=== PATIENT | female | born 1985 | race Caucasian/White ===

== ENCOUNTER 2017-12-06 09:26 | Outpatient (CLI) | payer MEDICARE, MEDICAID ==
[~2017-12-06] VITALS: Ht 165.1 cm; Wt 95.9 kg
[~2017-12-06 09:26] MED LIST: ACHD5005 PO; AMOX500C2 PO; NAPR-243 PO
[2017-12-06] MEDS ORDERED: RT-ALBUINH IH (09:38)
[2017-12-06 09:41] VITALS: BP 119/77
[2017-12-06 10:45] LABS: BASOPHILS % (AUTO) 0 % (0-10); EOSINOPHILS # (AUTO) 0.2 10^3/uL (0.0-0.3); EOSINOPHILS % (AUTO) 1 % (0-10); HEMATOCRIT 41 % (35-52); HEMOGLOBIN 14.3 G/DL (11.5-16.0); LYMPHOCYTES # (AUTO) 3.5 X 10^3 (1.0-4.0); LYMPHOCYTES % (AUTO) 26 % (12-44); MEAN CORPUSCULAR HEMOGLOBIN 32 PG (25-34); MEAN CORPUSCULAR HGB CONC 35 G/DL (32-36); MEAN CORPUSCULAR VOLUME 91 FL (80-99); MEAN PLATELET VOLUME 9.5 FL (7.4-10.4); MONOCYTES # (AUTO) 1.5 X 10^3 (0.0-1.0); MONOCYTES % (AUTO) 11 % (0-12); NEUTROPHILS # (AUTO) 8.6 X 10^3 (1.8-7.8); NEUTROPHILS % (AUTO) 62 % (42-75); PLATELET COUNT 361 10^3/uL (130-400); RED BLOOD COUNT 4.52 10^6/uL (4.35-5.85); RED CELL DISTRIBUTION WIDTH 12.8 % (10.0-14.5); WHITE BLOOD COUNT 13.8 10^3/uL (4.3-11.0)
[2017-12-10] MEDS ORDERED: IBUP-844 PO (10:53)
[2017-12-10] MEDS ORDERED: HYDR-34 PO (10:53)
[2017-12-10] MEDS ORDERED: SIME80TA16 PO (10:53)
[2017-12-10] MEDS ORDERED: DOCU100C37 PO (10:53)
== END 2017-12-06 13:01 | disposition home or self-care (01) ==
LOC: PREOP 09:26
PROVIDERS: ATTEND Obstetrics & Gynecology
DX: Z01.812 Encounter for preprocedural laboratory examination (principal); Z11.2 Encounter for screening for other bacterial diseases; N87.9 Dysplasia of cervix uteri, unspecified
CPT/HCPCS: 36415; 85025; 86850; 86900; 86901; 87081

== ENCOUNTER 2017-12-10 08:35 | Day surgery (SDC) | payer MEDICARE, MEDICAID ==
[~2017-12-10] VITALS: Ht 165.1 cm; Wt 95.9 kg
[~2017-12-10 08:35] MED LIST changes: +LACTATED RINGERS 1,000 ML IV ONE; +RT-ALBUINH IH
[2017-12-10] MEDS ORDERED: metroNIDAZOLE 500MG/100ML IVPB 100 ML IV ONE (08:45)
[2017-12-10] MEDS ORDERED: ceFAZolin 2 GM IV Premixed 50 ML IV ONE (08:45)
[2017-12-10] MEDS ORDERED: LIDOCAINE 1% INJ 20 ML 20 ML VIAL ONE (08:50)
[2017-12-10 09:27] VITALS: BP 111/69
[2017-12-10] MEDS: LACTATED RINGERS 1,000 ML IV PRN ×2 (10:00→11:55)
--- NOTE | 2017-12-10 10:01 | History & Physical-Surgical ---
HPO-Surgical History of Present Illness Chief Complaint: Positive cervical margins on cone biopsy of cervix with long history of recurrent cervical dysplasia Diagnosis/Surgical Indication: RECURRENT CERVICAL DYSPLASIA Procedure: RATLH WITH POSS BSO Date of Surgery: December 10, 2017 Weight (Pounds): 211 Weight (Ounces): 8.0 Height (Feet): 5 Height (Inches): 5.00 Allergies and Home Medications Allergies Coded Allergies: mirtazapine (Verified Allergy, Mild, HALLUCINATIONS, 12/06/17) Home Medications Albuterol Sulfate 1 Puff Puff, 2 PUFF IH Q4H PRN for SHORTNESS OF BREATH, ( Reported) 1 PUFF = 90 MCG Patient Home Medication List Home Medication List Reviewed: Yes Past Sdkzxlq-Fxyavq-Aiyfsj Hx Patient Social History Alcohol Use: Denies Use Recreational Drug Use: No Smoking Status: Current Everyday Smoker Type Used: Cigarettes Recent Foreign Travel: No Contact w/other who traveled: No Recent Hopitalizations: No Recent Infectious Disease Expo: No Immunizations Up To Date Date of Influenza Vaccine: May 19, 2011 Seasonal Allergies Seasonal Allergies: No Surgeries Gallbladder Neurological Seizure Disorder Reproductive System Hx Reproductive Disorders: Yes (RECURRENT CERVICAL DYSPLASIA) Sexually Transmitted Disease: Yes (CHYLMYDIA) HIV/AIDS: No Female Reproductive Disorders: Menstrual Problems HEENT Loss of Vision: Bilateral Hearing Impairment: Denies Blood Transfusions Adverse Reaction to a Blood Tr: No Exam Vital Signs Vital Signs 12/10/17 09:27 Temp 98.4 Pulse 100 Resp 18 B/P (MAP) 111/69 (83) Pulse Ox 94 O2 Delivery Room Air Capillary Refill : Labs Laboratory Tests Test 12/10/17 08:30 Range/Units Urine Test NEGATIVE NEGATIVE General Appearance: Alert, Oriented X3 HEENT: Atraumatic Respiratory: Clear to Auscultation Cardiovascular: Regular Rate Abdominal: Normal Bowel Sounds Extremities: No Clubbing Skin: No Significant Lesion Neuro: Normal Gait Psych/Mental Status: Mental Status NL Assessment/Plan Assessment and Plan 32 yo with recurrent cervical dysplasia Positive endocervical margins with showed CIN2 Robotic Assisted TLH P: RATLH with poss BSO Admission Diagnosis 32 yo with recurrent cervical dysplasia Positive endocervical margins with showed CIN2 Robotic Assisted TLH Admission Status: Observation HUSAM NIETO DO December 10, 2017 10:00 am
[2017-12-10] MEDS ORDERED: BUPIVACAINE 0.25% 30 ML (SENSORCAINE) VIAL ONE (10:07)
[2017-12-10] MEDS ORDERED: DEXAMETHASONE 10 MG/ML (DECADRON) 1 ML VIAL ONE (10:20)
[2017-12-10] MEDS ORDERED: LIDOCAINE PF 2% 5 ML (XYLOCAINE) VIAL ONE (10:20)
[2017-12-10] MEDS ORDERED: proPOfol 200 MG/20 ML (DIPRIVAN) VIAL IV ONE (10:20)
[2017-12-10] MEDS ORDERED: NEOSTIGMINE 1 MG/ML 5 ML SYRINGE ONE (10:20)
[2017-12-10] MEDS ORDERED: ROCURONIUM 10 MG/ML 5 ML SYRINGE IV ONE (10:20)
[2017-12-10] MEDS ORDERED: ONDANSETRON 4 MG/2 ML (SDV) Z0FRAN ONE (10:20)
[2017-12-10] MEDS ORDERED: GLYCOPYRROLATE 0.2 MG/ML (ROBINUL) 2 ML VIAL ONE (10:20)
[2017-12-10] MEDS ORDERED: SEVOFLURANE (ULTANE) 15 ML INHAL SOLN ONE (10:20)
[2017-12-10] MEDS ORDERED: fentaNYL INJECTION 100 MCG/2 ML AMP ONE ×2 (10:21→11:12)
[2017-12-10] MEDS ORDERED: MIDAZOLAM 2 MG/2 ML (VERSED) VIAL ONE (10:21)
[2017-12-10] MEDS ORDERED: LACTATED RINGERS 1,000 ML IV SCH (10:47)
[2017-12-10] MEDS ORDERED: SIME80TA16 PO (10:53)
[2017-12-10] MEDS ORDERED: HYDR-34 PO (10:53)
[2017-12-10] MEDS ORDERED: IBUP-844 PO (10:53)
[2017-12-10] MEDS ORDERED: DOCU100C37 PO (10:53)
--- NOTE | 2017-12-10 10:54 | Discharge Inst-Women's Service ---
Discharge Inst-Women's Serv Depart Medication/Instructions New, Converted or Re-Newed RX: RX on Chart Consults/Follow Up Additional Follow Up: Yes Orders/Referrals Dr. Henson in 7-10 days and in 8 weeks Activity Activity: Activity as Tolerated Driving Instructions: No Driving for 1 Week NO SMOKING: NO SMOKING Nothing Inside Vagina: No Douching, No [place], No Tampons Diet Discharge Diet: No Restrictions Symptoms to Report to : Bleeding Excessive, Pain Increased, Fever Over 101 Degrees F, Vaginal Bleeding Increase, Questions/Concerns For Any Problems or Questions: Contact Your Physician Skin/Wound Care Infection Signs and Symptoms: Increased Redness, Foul Odor of Wound, Increased Drainage, Skin Itchy or Has a Rash, Increased Swelling, Temperature Above 101 F Operative Area Clean and Dry: Keep Incision Clean/Dry Stitches/Zach/Dermabond: Dermabond, Care of Stitches Bathing Instructions: HUSAM Borden DO December 10, 2017 10:54
[2017-12-10] MEDS ORDERED: SIMETHICONE 80 MG (MYLICON) CHEW PO PRN (11:00)
[2017-12-10] MEDS ORDERED: ANTACID SUSP 30 ML UDC (MYLANTA) PO PRN (11:00)
[2017-12-10] MEDS ORDERED: HYDROcodone/APAP 7.5 MG/325 MG (LORTAB, LORCET PLUS) TABLET PO PRN (11:00)
[2017-12-10] MEDS ORDERED: DOCUSATE SODIUM 100 MG (COLACE) CAP PO PRN (11:00)
[2017-12-10] MEDS ORDERED: ZOLPIDEM 5 MG (AMBIEN) TAB PO PRN (11:00)
[2017-12-10] MEDS ORDERED: ONDANSETRON 4 MG/2 ML (SDV) Z0FRAN IV PRN (11:00)
[2017-12-10] MEDS ORDERED: KETOROLAC 30 MG/ML VIAL IV PRN (11:00)
[2017-12-10] MEDS ORDERED: CHLORASEPTIC LOZENGE MM PRN (11:00)
[2017-12-10] MEDS ORDERED: PHENYLEPHRINE 100 MCG/ML 10 ML (ANESTHESIA) SYR ONE (11:39)
[2017-12-10] MEDS ORDERED: morphine INJ 10 MG/ML 1ML (SYR OR VIAL) ONE (12:24)
[2017-12-10] MEDS ORDERED: KETOROLAC 30 MG/ML VIAL ONE (12:24)
[2017-12-10] MEDS: morphine INJ 10 MG/ML 1ML (SYR OR VIAL) IVP PRN ×2 (12:30→12:35)
[2017-12-10] MEDS ORDERED: ONDANSETRON 4 MG/2 ML (SDV) Z0FRAN IVP PRN (12:30)
[2017-12-10] MEDS ORDERED: HYDROmorphone 1 MG/ML (DILAUDID) 1 ML SYRINGE IV PRN (12:30)
[2017-12-10 13:25] VITALS: BP 100/60
--- NOTE | 2017-12-10 14:15 | Anesthesia-General Post-Op ---
General Patient Condition Mental Status/LOC: Same as Preop Cardiovascular: Satisfactory Nausea/Vomiting: Absent Respiratory: Satisfactory Pain: Controlled Complications: Absent Post Op Complications Complications None Follow Up Care/Instructions Patient Instructions None needed. Anesthesia/Patient Condition Patient Condition Patient is doing well, no complaints, stable vital signs, no apparent adverse anesthesia problems. No complications reported per nursing. D/C home per [facility] [place] Criteria: No MEMO BUENO CRNA December 10, 2017 14:15
--- NOTE | 2017-12-10 17:43 | OPERATIVE REPORT ---
DATE OF SERVICE: 12/10/2017 PREOPERATIVE DIAGNOSES: A 32-year-old female with: 1. Recurrent cervical dysplasia. 2. MARGO 2 positive endocervical margins. POSTOPERATIVE DIAGNOSES: 1. Recurrent cervical dysplasia. 2. MARGO 2 positive endocervical margins. PROCEDURE: Robotic assisted total laparoscopic hysterectomy with bilateral salpingectomy. SURGEON: Jaya Nieto DO SOUR BLEACHING PLEATER: DEB Wong ANESTHESIA: General endotracheal. ESTIMATED BLOOD LOSS: Minimal. URINE OUTPUT: 100 mL clear at the end of the procedure. FLUIDS: Two liters lactated Ringer solution. FINDINGS: A normal appearing uterus and fallopian tubes, normal appearing bilateral ovaries, normal vaginal mucosa, normal appearing cervix on gross inspection. INDICATIONS FOR PROCEDURE: This 32-year-old female, who was a consultation in my office due to cone biopsy showing positive endocervical margins with evidence of MARGO 3 extending past this margin. I discussed with the patient her history. She had undergone multiple colposcopies in the past 4 to 5 years resulting in multiple inconvenient procedures, repeat Pap smears, and finally this conization that happened just recently to her. At this point, I discussed with the patient proceeding with a repeat conization to try and get clear margins. However, I did discuss with the patient the option of proceeding with hysterectomy. She was done having children and therefore, decided more appealing to her. Risks of the procedure were discussed with the patient in detail including risk of bleeding, infection, damage to surrounding structures including, but not limited to bowel, bladder, ureter, kidneys, risk for postoperative complications including thromboembolic events, hematoma formation, infection, possible need for laparotomy, risk from anesthesia and even were all discussed with the patient. After all of her questions were answered, consent was obtained and the patient was taken to the operating room. OPERATIVE REPORT IN DETAIL: Once in the operating room, general anesthesia was found to be adequate. She was placed in in the dorsal lithotomy position, prepped and draped in normal sterile fashion. Diaz catheter was placed using sterile technique. A weighted speculum was inserted in the patient's vagina. A right angle retractor was used to visualize the cervix. An 0 Vicryl suture was placed in the anterior lip of the cervix and the suture was used as my retraction point. I then gently sound the uterine cavity depth, which was found to be 7 cm. I selected a 6 cm Tabatha uterine manipulator tip and 3.5 colpotomy ring. I placed this into the uterus deploying the balloon and applied the colpotomy ring around the vaginal fornix. Once this is in place, bimanual manipulation is appreciated. All other instruments were then removed from the patient's vagina. Change of gloves performed. I took my attention to the abdomen where infraumbilically I infiltrated this area using 0.25% Marcaine and make an 8 mm incision and directed a Veress needle through this incision until intraperitoneal placement was confirmed using a saline drop test. I proceeded to insufflate; however, and I am unable to insufflate nor confirm peritoneal access; therefore, I go into the left upper quadrant to make a puncture wound and a Veress needle is inserted 1 cm inferiorly to the subcostal margin. Once I did this, I am able to confirm intraperitoneal placement using the saline drop test and opening pressure with CO2 gas, it was appreciated to 4 mmHg. I then proceeded with insufflation to maximum pressure of 15 mmHg, at which point, I removed the Veress needle and introduced a blunt 8 mm da Chau trocar through my infraumbilical incision site. Once this was in place, I am able to confirm intraperitoneal placement using the da Chau laparoscope. I briefly scanned the left upper quadrant to confirm where my puncture site is and to ensure there was no damage upon entry and there is not. I then had the patient placed in steep Trendelenburg and made to visualize all the anatomy findings as described in my findings above. I then placed two lateral trocars. These were both 8 mm. The skin is infiltrated using 0.25% Marcaine approximately 8 to 10 cm lateral to my infraumbilical trocar site. The incisions were made and the trocars were placed under direct visualization of the laparoscope. Once both of these trocars were in place, I am able to bring in the da Chau robot and docked in the appropriate fashion using the vessel sealer in the left hand and monopolar ofelia in the right hand. I performed the following dissection bilaterally. I grasped the uteroovarian ligament, bipolar cauterized and transected this using the vessel sealer. I then created a window in the mesosalpinx taking this laterally, amputating the fallopian tube from its surrounding blood supply. I then grasped the round ligament, bipolar cauterized this and transected this using the vessel sealer. I then grasped the entire broad ligament, bipolar cauterized and transected using vessel sealer down to the level of the lower uterine segment, at which point, I the anterior and posterior leaflets. The anterior leaflet is dissected around to the anterior vaginal fornix. The posterior leaflet was taken down to the posterior vaginal fornix. This exposes the uterine vessels laterally, which I bipolar cauterized and transected using the vessel sealer. I then performed a colpotomy at 12 o'clock using the monopolar ofelia and taken this circumferentially around the colpotomy ring amputating the cervix from the surrounding vaginal fornix. The specimen was then removed through the vagina. I then proceeded with closing the vaginal cuff. The lateral vaginal apices were closed using 2-0 Vicryl suture in a [id number] fashion, colposuspending them through the uterosacral ligaments. I then closed the remainder of the vaginal cuff using 2-0 V-Loc in a running fashion. There is no active bleeding noted from my dissection planes at that point. I undocked the da Chau robot and proceeded with the remainder of the case laparoscopically. I then copiously irrigated the pelvis using normal saline. Once again, there was no active bleeding noted from any of my dissection planes. I placed FloSeal hemostatic agent over all my planes of dissection and I had the patient taken out of steep Trendelenburg. I removed the lateral trocars under direct visualization of the laparoscope. The infraumbilical trocar was left in place to release insufflation and to introduce 10 mL of 0.25% Marcaine for postoperative pain management. I then removed this trocar as well. The skin was then re-approximated using 4-0 Monocryl in interrupted subcuticular stitch. Dermabond was applied to the incision and Band-Aids were placed over the incisions as well. Diaz catheter was left in place. The patient tolerated the procedure well and was taken to recovery area in stable condition. Lap and sponge counts were correct at the end of the procedure. Instrument counts were correct as well. Two grams of Ancef and 500 mg of Flagyl were given preoperatively for infection prophylaxis. Job ID: [id number] DocumentID: [id number] Dictated Date: 12/10/2017 12:50:05 Electrician Apprentice Date: 12/10/2017 17:42:34 Dictated By: JAYA NIETO DO
[2017-12-11] MEDS ORDERED: IBUPROFEN 600 MG (MOTRIN) TAB PO PRN (03:30)
== END 2017-12-10 17:20 | disposition home or self-care (01) ==
LOC: SDC 08:35 → WS 13:31 → SDC 17:20
PROVIDERS: ATTEND Obstetrics & Gynecology
DX: N87.0 Mild cervical dysplasia (principal); N72 Inflammatory disease of cervix uteri; N83.8 Other noninflammatory disorders of ovary, fallopian tube and broad ligament; G40.909 Epilepsy, unspecified, not intractable, without status epilepticus; F17.210 Nicotine dependence, cigarettes, uncomplicated
CPT/HCPCS: 84703; 86850; 86900; 86901; 88307; 94664

== ENCOUNTER → 2019-04-05 | Outpatient (CLI) | payer MEDICARE, MEDICAID ==
[~2019-04-05] MED LIST changes: +DOCU100C37 PO; +HYDR-34 PO; +IBUP-844 PO; -LACTATED RINGERS 1,000 ML IV ONE; +SIME80TA16 PO
--- NOTE | 2019-04-05 11:16 | Diagnostic Imaging Report ---
PROCEDURE: CT urinary tract, rule out kidney stone. TECHNIQUE: Multiple contiguous axial images were obtained through the abdomen and pelvis without the use of intravenous contrast. Auto Exposure Controls were utilized during the CT exam to meet ALARA standards for radiation dose reduction. INDICATION: Right flank pain and midabdominal pain as well as diarrhea and nausea. COMPARISON: No prior studies are available for comparison. FINDINGS: The lung bases are clear. No discrete liver mass is identified. The gallbladder is surgically absent. No biliary ductal dilatation is seen. Pancreas and spleen are unremarkable. No adrenal mass is detected. No renal calculi or evidence of hydronephrosis is identified. No bladder calculi are seen. The aorta is nonaneurysmal. The small and large bowel loops are normal in caliber. Appendix is unremarkable. There is no ascites. Uterus appears to be surgically absent. No abdominal or pelvic lymphadenopathy is seen. IMPRESSION: Unremarkable noncontrast CT of the abdomen and pelvis. There is no evidence of urinary tract calculi or obstruction. There is no CT evidence of acute appendicitis. Dictated by: Dictated on workstation # [id number]
== END ==
LOC: RAD 10:14
PROVIDERS: ATTEND Registered Nurse
DX: R31.9 Hematuria, unspecified (principal); R10.9 Unspecified abdominal pain
CPT/HCPCS: 74176

== ENCOUNTER → 2019-09-15 | Outpatient (CLI) | payer MEDICARE, MEDICAID ==
[~2019-09-15] MED LIST changes: +CATHETER FLUSH 10 ML SYR IV PRN; +HOLD METFORMIN - RECEIVED CONTRAST 20 ML VIAL IV SCH; +IOHEXOL 350 MG/ML 100 ML (OMNIPAQUE 350) VIAL IV ONE; +NS 100 ML (IVPB) BAG IV ONE
[2019-09-15 10:03] LABS: BUN/CREATININE RATIO 18; CALCIUM 9.6 MG/DL (8.5-10.1); CARBON DIOXIDE 22 MMOL/L (21-32); CHLORIDE 107 MMOL/L (98-107); CREATININE SERUM 0.74 MG/DL (0.60-1.30); GFR ESTIMATED > 60; GLUCOSE 99 MG/DL (70-105); POTASSIUM 4.4 MMOL/L (3.6-5.0); SODIUM 140 MMOL/L (135-145)
--- NOTE | 2019-09-15 11:08 | Diagnostic Imaging Report ---
PROCEDURE: CT abdomen and pelvis with contrast. TECHNIQUE: Multiple contiguous axial images were obtained through the abdomen and pelvis after administration of intravenous contrast. Auto Exposure Controls were utilized during the CT exam to meet ALARA standards for radiation dose reduction. INDICATION: Lower abdominal pain and abdominal fullness. COMPARISON: Correlation is made with prior CT from 04/05/2019. FINDINGS: The lung bases are clear. No discrete liver mass is detected. Gallbladder is surgically absent. No biliary ductal dilatation is seen. The pancreas and spleen are unremarkable. No adrenal mass is detected. Kidneys are unremarkable. No hydronephrosis is identified. Aorta is non-aneurysmal. The small and large bowel loops are normal caliber. No obstruction is identified. No free fluid or fluid collection is identified in the abdomen or pelvis. Bladder is unremarkable. Uterus appears to be surgically absent. No definite abdominal or pelvic lymphadenopathy is detected. IMPRESSION: Essentially unremarkable CT of the abdomen and pelvis with contrast. No acute features detected. Dictated by: Dictated on workstation # [id number]
== END ==
LOC: RAD 09:36
PROVIDERS: ATTEND Nurse Practitioner Family
DX: R10.30 Lower abdominal pain, unspecified (principal); R14.0 Abdominal distension (gaseous); Z90.49 Acquired absence of other specified parts of digestive tract
CPT/HCPCS: 36415; 74177; 80048